=== PATIENT | female | born 1945 | race Caucasian/White ===

== ENCOUNTER → 2023-10-10 13:10 | Outpatient (REF) | payer MEDICARE, OTHER, SELFPAY | LOC: HWRAD 13:10 | PROVIDERS: ATTENDING PHYSICIAN Internal Medicine | DX: Z12.31 Encounter for screening mammogram for malignant neoplasm of breast (principal); R41.89 Other symptoms and signs involving cognitive functions and awareness | CPT/HCPCS: 70450; 77063; 77067 ==